=== PATIENT | female | born 1970 | race Caucasian/White ===

== ENCOUNTER → 2016-11-02 | Outpatient (CLI) | payer OTHER ==
[~2016-11-02] MED LIST: ECOTRIN81 MG PO; FLORINEF 0.1 M0.1 MG PO; GENERLAC10 GM/15 M PO; HUMALOG100 UNIT/2 SC; HYDRALAZINE HCL50 MG PO; ISOSORBIDE MONO30 MG PO; LANTUS100 UNIT/1 SC; LASIX80 MG PO; LIPITOR TAB 2020 MG PO; NEURONTIN 300300 MG PO
[2016-11-02 11:49] LABS: HEMOGLOBIN 9.5 gm/dl (12.3-15.3); RED BLOOD COUNT 3.3 M/UL (4.00-5.10); WHITE BLOOD COUNT 8.1 K/UL (4.5-11.0)
== END ==
LOC: LAB 11:09
PROVIDERS: Internal Medicine Nephrology
DX: N18.3 Chronic kidney disease, stage 3 (moderate) (principal); E87.5 Hyperkalemia
CPT/HCPCS: 36415; 80048; 85027; 85610; 85730

== ENCOUNTER → 2016-11-07 | Outpatient (CLI) | payer OTHER | LOC: CT 05:47 | PROC: 0TB03ZX Excision of Right Kidney, Percutaneous Approach, Diagnostic (ICD-10-PCS; principal; 2016-11-07) | DX: Z48.816 Encounter for surgical aftercare following surgery on the genitourinary system (principal) | CPT/HCPCS: 77012; 82962; 88305; 88313; 88346; 88348 ==

== ENCOUNTER → 2021-03-18 | Outpatient (CLI) | payer OTHER | LOC: KOH-I 11:52 | DX: I50.9 Heart failure, unspecified (principal) | CPT/HCPCS: 71046 ==